=== PATIENT | male | born 2000 | race Caucasian/White ===

== ENCOUNTER 2024-04-22 18:51 | Emergency (ER) | payer BC, SELFPAY ==
[2024-04-22 18:57] VITALS: BP 159/87
[2024-04-22 19:04] VITALS: BP 138/78
--- NOTE | 2024-04-22 19:32 | ED.GENMED ---
History of Present Illness
General
Chief Complaint: Throat Problem
Source: patient
Exam Limitations: none
Time Seen by Provider: 04/22/24 19:01
History of Present Illness
History of Present Illness:
This is a 23 year old male that comes in with c/o sore throat. States that he started with a sore throat on the . States that he went to and was given Amoxicillin but this is not helping. States that he is no better. States that he
is unable to eat and it hurts to swallow. states that he has a fever on and off, SOB, nausea, vomiting, headache, dizziness. Denies any chills, chest pain, abd pain, diarrhea, urinary burning.
Past History
Past History
ED Past Medical History: Other (Crohns); Negative Asthma, HTN, Hypercholesterolemia or NIDDM
ED Past Surgical History: Other (Hernia repair)
Social History
Tobacco: Non-smoker
Alcohol: Occasional
Personal: Single
Living: with family
Review of Systems
Review of Systems
All Other Systems: ROS reviewed and negative except as documented in HPI and ROS
Constitutional: Reports fever (on and off); Denies chills
EENT: Reports sore throat and other (difficulty swallowing)
Respiratory: Reports trouble breathing; Denies cough
Cardiac: Reports no symptoms; Denies chest pain
ABD/GI: Reports nausea and vomiting; Denies abdominal pain or diarrhea
: Reports no symptoms; Denies dysuria, frequency or urgency
Musculoskeletal: Reports no symptoms
Skin: Reports no symptoms
Neurological: Reports dizzy and headache
Psychiatric: Reports no symptoms
Phy Exam
General Physical Exam
General Presentation: no apparent distress
General age: appears stated age
General Skin: warm and dry
General Habitus: normal
General Mental: alert
General Hydration: appears well hydrated
ENT Exam
ENT Exam: TM's normal and neck supple
Additional ENT: Pharynx and tonsils red with exudate, Tonsils bilateral touching uvula
Eye Exam
Eye Exam: EOMI
Cardiovascular Exam
Cardiovascular Exam: regular rate/rhythm, no edema, no murmur and normal peripheral pulses
Pulmonary Exam
Pulmonary Exam: lungs clear, no respiratory distress, no rales, chest non tender, no crackles, no rhonchi, no wheezing and no cough
Gastrointestinal Exam
Gastrointestinal Exam: normal bowel sounds, non tender, soft, no organomegaly, no pulsatile mass and non distended
Musculoskeletal Exam
Musculoskeletal Exam: full ROM and no edema
Skin Exam
Skin Exam: normal color, warm/dry, no rash and no petechia
Psychiatric Exam
Psychiatric Exam: normal mood/affect
Course
Orders/Labs/Results
Orders:
Orders
04/22/24 19:30
CT Neck With Iv Contrast Urgent
Comment: history of cyst right sided of throat
Reason For Exam: Lymphnodes enlarged, Sore throat
04/22/24 19:31
0.9% Sodium Chloride 1000 ml [Nss] 1,000 ml IV BOLUS
Dexamethasone Sod Phosphate [Decadron] 20 mg IV NOW STA
Ketorolac [Toradol] 30 mg IV NOW STA
04/22/24 19:51
Rapid Strep Group A Urgent
[place] Source: Throat/Pharynx
Specimen Description:
Date Specimen was Collected: 04/22/24
Time Specimen was Collected: 19:43
Throat Culture [Throat Culture, Comprehensive] Urgent
[place]ONIA Source: Tonsil
Specimen Description:
Date Specimen was Collected: 04/22/24
Time Specimen was Collected: 19:43
04/22/24 19:53
Comprehensive Metabolic Panel Urgent
Lactic Acid Urgent
Monotest Urgent
04/22/24 19:54
Complete Blood Count/With Diff Urgent
Abnormal Lab Results
04/22/24 04/22/24
19:53 19:54
WBC 12.4 H 10^3/uL
(4.8-10.8)
Absolute Neuts (auto) 6.8 H 10^3/uL
(1.4-6.5)
Absolute Lymphs (auto) 4.0 H 10^3/uL
(1.2-3.4)
Absolute Monos (auto) 1.5 H 10^3/uL
(0.1-0.6)
Monocytes % 12.0 H %
(1.7-9.3)
Chloride 96 L mmol/L
(98-107)
Total Protein 8.3 H g/dl
(6.3-8.2)
04/22/24 19:54
04/22/24 19:53
Leukocytosis, Chloride slightly low. Total protein Slightly elevated. lactic acid normal at 1.2, MONO negative, Rapid strep negative.
Vital Signs
Initial and Last Documented VS:
Initial Vital Signs
Temp Pulse Resp BP Pulse Ox
98.4 F 97 16 159/87 98
04/22/24 18:57 04/22/24 18:57 04/22/24 18:57 04/22/24 18:57 04/22/24 18:57
Last Documented Vital Signs
Temp Pulse Resp BP Pulse Ox
98.4 F 82 12 144/73 97
04/22/24 18:57 04/22/24 22:00 04/22/24 22:00 04/22/24 22:00 04/22/24 22:00
MDM/Problems Addressed
Differential Diagnosis Includes:
Peritonsillar abscess, [place],
MDM/Problems Addressed:
This is a 23 year old male that comes in with c/o sore throat. States that this started on . Patient went to and he was told that the rapid strep was negative but he was place on Amoxicillin. States that he has a hard time getting this
down.
Will gels, give IV fluids. steroid, pain medication and CT soft tissue neck.
Chronic conditions affecting care:
NA
Acute Exacerbation and/or Progression of Chronic Illness:
NA
*Radiology
Radiology exam reviewed: radiology read reviewed (CT neck- There is enlarged, mildly heterogeneous bilaterl tonsils without discrete fluid collection, likely pharyngitis/tonsillitis. There is bilateral cervical lymphadenopathy which may be reactive.
Consider follow-up to ensure resolution. )
*Pulse Oximetry
Patient hypoxic: no
*EKG
Interpreted by ED Provider?: NA
Rate: EKG- N/A
*Tile Layer Supervisor Interpretation
Rate: Tile Layer Supervisor- N/A
*Critical Care Note
Total Time (30-74mins, 75-104mins- exclusive of procedures): Not Applicable
ED Attending Note
-
Portions of this chart may have been created with voice recognition software.� Occasional wrong word or��sound alike� substitutions may have occurred due to the inherent limitations of voice recognition software.
Discharge Plan
Departure
Patient Disposition: Home (Routine Discharge)
Date of Disposition: 04/22/24
Time of Disposition: 23:01
Patient with high blood pressure during this ER visit?: Yes
Condition: Good
Covid-19: Not Applicable
Discharge Problem:
Acute tonsillitis
Instructions: Sore Throat, Adult ED, BLOOD PRESSURE
Prescriptions:
New
prednisone 20 mg tablet
40 mg PO DAILY Qty: 8 0RF
Referrals:
Enmanuel Mccloud MD [Family Provider] -
Angel Reddy MD [Active] - Follow up in 2-3 days
Activity Restrictions/Additional Instructions:
As discussed, your blood work shows that your white blood cell count is slightly elevated. Your [place] and strep are negative. Your CT shows that there is no fluid collection but this is most likely Pharyngitis/Tonsillitis. You have had a prescription
for a steroid sent to your Pharmacy. Please continue with the antibiotic that you have been given. Please increase your water intake to 8-8oz glasses daily. Follow up with the family doctor or the ENT specialist for further evaluation. Please use
Tylenol or Ibuprofen for fever and pain. IF YOU HAVE DIFFICULTY SWALLOWING, INCREASED PAIN, OR YOU HAVE ANY OTHER CONCERNS PLEASE RETURN TO THE EMERGENCY ROOM.
Interventions
Interventions:
*Risk Screen - Suicide Last Done: 04/22/24 18:57
*General Assessment Last Done: 04/22/24 19:48
*Neglect/Abuse Screening Last Done: 04/22/24 18:57
ED- Fall Risk Assessment Last Done: 04/22/24 20:07
*ED COVID-19 Vaccine History Last Done: 04/22/24 19:48
ED-EENT Assessment Last Done: 04/22/24 20:07
ED- Pulmonary Assessment Last Done: 04/22/24 20:07
Discharge Date and Time
Print Language: SAMMARINESE
[2024-04-22] MEDS: NSS 1000 IV (19:58)
[2024-04-22] MEDS: TORADOL 30 MG IV (19:58)
[2024-04-22 20:00] VITALS: BP 150/81
[2024-04-22] MEDS: DECADRON 20 MG IV (20:02)
[2024-04-22 20:06] LABS: % Basophils 0.6 % (0-2); % Immature Granulocytes 0.3 % (0-0.5); % Neutrophils 55.1 % (42.2-75.2); Absolute Basophils 0.1 10^3/uL (0-0.2); Absolute Monocytes 1.5 10^3/uL (0.1-0.6); Absolute Neutrophils 6.8 10^3/uL (1.4-6.5); Hematocrit 41.3 % (39.0-52.0); Hemoglobin 14.8 g/dL (13.0-18.0); Mean Corp Hgb Conc. 35.8 g/dL (33.0-37.0); Mean Corpuscular Hgb 28.7 pg (27.0-31.0); Mean Platelet Volume 9.5 fL (7.4-10.4); Nucleated Red Blood Cells % 0 % (-); Platelet Count 188 10^3/uL (130-400); Red Blood Cell Count 5.16 10^6/uL (4.70-6.10); Red Cell Dist. Width 12.3 % (11.5-14.5); White Blood Cell Count 12.4 10^3/uL (4.8-10.8)
[2024-04-22 20:16] LABS: Monotest Negative (Negative)
[2024-04-22 20:19] LABS: Lactic Acid 1.2 mmol/L (0.7-2.0)
[2024-04-22 20:28] LABS: ALT (SGPT) 36 U/L (0-50); AST (SGOT) 32 U/L (17-59); Albumin 4.6 g/dl (3.5-5.0); Alkaline Phosphatase 76 U/L (38-126); Blood Urea Nitrogen 12 mg/dl (9-20); Calcium 9.2 mg/dl (8.4-10.2); Carbon Dioxide 26 mmol/L (22-30); Chloride 96 mmol/L (98-107); Glucose 95 mg/dl (70-99); Potassium 4.2 mmol/L (3.5-5.1); Sodium 138 mmol/L (135-145); Total Bilirubin 1.3 mg/dl (0.2-1.3); Total Protein 8.3 g/dl (6.3-8.2); eGFR > 60.00
[2024-04-22 21:00] VITALS: BP 154/80
[2024-04-22 22:00] VITALS: BP 144/73
[2024-04-22 23:00] VITALS: BP 148/83
== END 2024-04-22 23:18 | disposition home or self-care (01) ==
LOC: EMR 18:51
PROVIDERS: Clinical Nurse Specialist Family Health; EMERGENCY PHYSICIAN Emergency Medicine; FAMILY PHYSICIAN Family Medicine
DX: J03.90 Acute tonsillitis, unspecified (principal)
CPT/HCPCS: 96374; 96375; 96361; 99284; 70491; 80053; 83605; 85025; 86308; 87070; 87880; Q9967

== ENCOUNTER 2025-01-23 13:07 | Emergency (ER) | payer BC, SELFPAY ==
[2025-01-23 13:09] VITALS: BP 142/96
--- NOTE | 2025-01-23 13:33 | EDRN ---
Dr. Henry in room w/ pt at this time.
[2025-01-23 13:39] VITALS: BMI 36.2
--- NOTE | 2025-01-23 13:46 | ED.GENMED ---
History of Present Illness
General
Chief Complaint: Ear Problem
Source: patient
Exam Limitations: none
Time Seen by Provider: 01/23/25 13:29
Nursing documentation reviewed up to this point in time: agreed with
History of Present Illness
History of Present Illness:
24-year-old male with a history of Crohn's disease on methotrexate presents to the ER for evaluation of ear ache and muffled hearing. Patient had tonsillectomy on 12/13/2024 with ENT through [facility]. He says he has recovered well from the
procedure and was in his normal state of health until this past Tuesday when he started to have some muffled hearing and ultimately developed earache bilaterally. Denies any drainage from the ears. He says he has had some sinus congestion as well.
No fever or chills. He went to urgent care initially and was prescribed cefdinir (he is allergic to amoxicillin/Augmentin which was rationale for Ceftin). He has been taking this for the past few days but he feels symptoms have not improved at
all which prompted ER visit.
Past History
Past History
ED Past Medical History: Other (Crohns); Negative Asthma, HTN, Hypercholesterolemia or NIDDM
ED Past Surgical History: Other (Hernia repair)
Social History
Tobacco: Non-smoker
Alcohol: Occasional
Personal: Single
Living: with family
Review of Systems
Review of Systems
All Other Systems: ROS reviewed and negative except as documented in HPI and ROS
Constitutional: Denies fever or chills
EENT: Reports other (Earache, muffled hearing); Denies sore throat
Respiratory: Reports cough; Denies trouble breathing
Phy Exam
Physical Exam
Physical Exam:
General: Well appearing and non-toxic
HEENT: protecting airway, midline uvula, no oropharyngeal erythema; on exam of the ears external ear normal bilaterally, no redness or tenderness of the mastoid processes bilaterally; ear canal clear bilaterally; he has bilateral TM erythema with
some slight bulging right greater than left
Neck: appears supple
CV: No evidence of cyanosis
Resp: No accessory muscle use
Abd: Non-distended
Extremities: No deformities
Neuro: Alert
Psych: Normal affect
Skin: Intact
Scores
Heart Failure Risk
Heart Failure Risk Score: Not Applicable
Heart Score for Chest Pain Patients
STEMI patient?: Not applicable
Withdrawal Assessment of Alcohol
Withdrawal Assessment Completed?: Not applicable
Course
Orders/Labs/Results
Orders:
Orders
01/23/25 13:38
LevoFLOXacin [Levaquin] 750 mg PO NOW STA
Prednisone [Deltasone] 50 mg PO NOW STA
Vital Signs
Initial and Last Documented VS:
Initial Vital Signs
Temp Pulse Resp BP Pulse Ox
36.9 C 65 16 142/96 99
01/23/25 13:09 01/23/25 13:09 01/23/25 13:09 01/23/25 13:09 01/23/25 13:09
Last Documented Vital Signs
Temp Pulse Resp BP Pulse Ox
36.9 C 65 16 142/96 99
01/23/25 13:09 01/23/25 13:09 01/23/25 13:09 01/23/25 13:09 01/23/25 13:09
MDM/Problems Addressed
Differential Diagnosis Includes:
Otitis media, eustachian tube dysfunction
MDM/Problems Addressed:
24-year-old male presents for evaluation of bilateral muffled hearing and earache. Has been on cefdinir for bilateral ear infection but no improvement after few days. Vitals and exam as above. He does appear to have bilateral erythema and some
bulging of the TMs consistent with otitis media. Suspect likely there could be some element of eustachian tube dysfunction in the setting of his recent procedure. Will plan to trial some steroids and transition antibiotic�he has been on cefdinir,
says he does not tolerate penicillins. Will switch to Levaquin. Urged him to follow-up with his ENT as an outpatient. He feels comfortable with this plan. We spoke about return precautions and all questions were answered.
*Pulse Oximetry
SaO2: 99
Oxygen Mode of Delivery: Room air
Patient hypoxic: no (99%)
*Critical Care Note
Total Time (30-74mins, 75-104mins- exclusive of procedures): Not Applicable
Data Reviewed
Source: patient and records
ED Attending Note
-
Portions of this chart may have been created with voice recognition software.� Occasional wrong word or��sound alike� substitutions may have occurred due to the inherent limitations of voice recognition software.
Discharge Plan
Departure
Patient Disposition: Home (Routine Discharge)
Date of Disposition: 01/23/25
Time of Disposition: 13:42
Patient with high blood pressure during this ER visit?: Yes
Discharge Problem:
Otitis media, Eustachian tube dysfunction
Instructions: Ear infection - ED discharge instructions
Prescriptions:
New
prednisone 10 mg Tablet
See Rx Instructions .ROUTE .COMPLEX Qty: 30 0RF
Rx Instructions:
Take By Mouth:
40 mg daily x3 days, 30 mg daily x3 days,
20 mg daily x3 days, 10 mg daily x3 days.
levofloxacin 750 mg tablet
750 mg PO DAILY Qty: 7 0RF
No Action
prednisone 20 mg tablet
40 mg PO DAILY Qty: 8 0RF
Activity Restrictions/Additional Instructions:
You should call your ENT to schedule an appointment as soon as possible for follow-up after your ER visit. You should take your medications as prescribed. If your symptoms are worsening or not improving after a few days you should return for
reassessment.
Thank you for visiting the Emergency Department at [facility].
1. Please schedule a follow up appointment as directed. Call first thing tomorrow morning to make an appointment.
2. If indicated, please take your medications as instructed and indicated on discharge paperwork.
3. If any of your symptoms do not improve, or persist, or become more severe within 6-12 hours, please return to the emergency department for further care.
4. Please return to the emergency department if you develop a headache, neck pain/stiffness, fever greater than 100.4F, chest pain, shortness of breath, persistent nausea, vomiting, slurred speech, difficulty walking, numbness/tingling, weakness,
signs of infection or any other symptoms that are worrisome to you.
Please call [phone] if you have any questions.
Interventions
Interventions:
*Risk Screen - Suicide Last Done: 01/23/25 13:41
*General Assessment Last Done: 01/23/25 13:40
*Neglect/Abuse Screening Last Done: 01/23/25 13:41
*ED- Fall Risk Assessment Last Done: 01/23/25 13:40
*ED COVID-19 Vaccine History Last Done: 01/23/25 13:40
Discharge Date and Time
Print Language: AFGHAN
[2025-01-23] MEDS: DELTASONE 50 MG PO (13:51)
[2025-01-23] MEDS: LEVAQUIN 750 MG PO (13:51)
== END 2025-01-23 14:02 | disposition home or self-care (01) ==
LOC: EMR 13:07
PROVIDERS: EMERGENCY PHYSICIAN Emergency Medicine; FAMILY PHYSICIAN Family Medicine
DX: H66.93 Otitis media, unspecified, bilateral (principal); H69.90 Unspecified Eustachian tube disorder, unspecified ear; K50.90 Crohn's disease, unspecified, without complications
CPT/HCPCS: 99283